=== PATIENT | male | born 1935 | race Caucasian/White ===

== ENCOUNTER 2021-10-12 22:46 | Inpatient (IN) | payer MEDICARE, BC ==
[~2021-10-12] VITALS: Ht 170.2 cm; Wt 108.9 kg
[2021-10-13 00:11] LABS: HEMOGLOBIN 11.3 gm/dl (14.0-17.5); RED BLOOD COUNT 3.83 M/UL (4.20-5.50); WHITE BLOOD COUNT 12.6 K/UL (4.5-11.0)
[2021-10-13] MEDS ORDERED: TYLENOL325 MG PO (12:03)
[2021-10-13] MEDS ORDERED: ELIQUIS5 MG PO (12:03)
[2021-10-13] MEDS ORDERED: CALCIUM CARBON600 MG PO (12:04)
[2021-10-13] MEDS ORDERED: VITAMIN D325 MC6 PO (12:04)
[2021-10-13] MEDS ORDERED: CHLORTHALIDONE25 MG PO (12:04)
[2021-10-13] MEDS ORDERED: VITAMIN B-121000 MCG PO (12:05)
[2021-10-13] MEDS ORDERED: FINASTERIDE5 MG PO (12:05)
[2021-10-13] MEDS ORDERED: FLONASE ALLER15.8 ML (12:05)
[2021-10-13] MEDS ORDERED: LISINOPRIL40 MG PO (12:06)
[2021-10-13] MEDS ORDERED: GALANTAMINE HBR8 MG PO (12:06)
[2021-10-13] MEDS ORDERED: SYNTHROID25 MCG PO (12:06)
[2021-10-13] MEDS ORDERED: MELATONIN3 MG PO (12:07)
[2021-10-13] MEDS ORDERED: LORATADINE10 MG PO (12:07)
[2021-10-13] MEDS ORDERED: MONTELUKAST SOD10 MG PO (12:07)
[2021-10-13] MEDS ORDERED: NIFEDIPINE ER30 M1 PO (12:08)
[2021-10-13] MEDS ORDERED: QUETIAPINE FUMA50 MG PO (12:08)
[2021-10-13] MEDS ORDERED: NITROGLYCERIN0.4 MG SL (12:08)
[2021-10-13] MEDS ORDERED: TRAZODONE HCL100 MG PO (12:08)
== END 2021-10-14 22:55 | disposition expired | DRG 291 ==
LOC: ER1 22:46 → MED SURG 4 23:53 → CDU 23:53 → MED SURG 4 10-13 01:26
PROVIDERS: Emergency Medicine; ADMIT Internal Medicine
DX: I11.0 Hypertensive heart disease with heart failure (principal); J96.01 Acute respiratory failure with hypoxia; I50.23 Acute on chronic systolic (congestive) heart failure; I42.9 Cardiomyopathy, unspecified; Z66 Do not resuscitate; I48.91 Unspecified atrial fibrillation; I25.10 Atherosclerotic heart disease of native coronary artery without angina pectoris; F03.90 Unspecified dementia, unspecified severity, without behavioral disturbance, psychotic disturbance, mood disturbance, and anxiety; Z95.1 Presence of aortocoronary bypass graft; Z74.01 Bed confinement status; Z79.899 Other long term (current) drug therapy; Z51.5 Encounter for palliative care
CPT/HCPCS: 80053; 83880; 85025; 93005; 94760; 96374; 96375; 96376; 99285; G0378; J2060; J2270